=== PATIENT | male | born 1950 | race Caucasian/White ===

== ENCOUNTER 2021-09-29 12:45 | Emergency (ER) | payer MEDICARE ==
[~2021-09-29] VITALS: Ht 177.8 cm; Wt 87.5 kg
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
[2021-09-29] MEDS ORDERED: ROCURONIUM BROMIDE 50 MG/5 ML IV ONE ×2 (12:52→15:00)
[2021-09-29] MEDS ORDERED: ETOMIDATE 2 MG/ML VIAL IV ONE ×2 (12:52→15:00)
--- NOTE | 2021-09-29 12:54 | NUR ---
IV LINE IS ESTABLISHED, BLOOD SPECIMEN COLLECTED AND SENT TO THE LAB. THE LINE IS SALINE LOCKED.
--- NOTE | 2021-09-29 12:55 | NUR ---
CALLED TELEMED IQ DR. DOHERTY WILL BE TELENEURO
[2021-09-29] MEDS ORDERED: LORAZEPAM INJ 2 MG/ML VIAL ONE (12:58)
[2021-09-29 13:03] LABS: BASOPHILS # (AUTO) 0.1 K/uL (0.0-0.2); BASOPHILS % (AUTO) 0.7 % (0.0-2.0); EOSINOPHILS % (AUTO) 1.2 % (0.0-6.0); HEMATOCRIT 44 % (39-51); HEMOGLOBIN 14.7 g/dL (13.5-17.5); LYMPHOCYTES # (AUTO) 2.2 K/uL (0.8-4.8); LYMPHOCYTES % (AUTO) 25.2 % (20.0-44.0); MEAN CORPUSCULAR HGB CONC 33 g/dl (31.0-36.0); MEAN CORPUSCULAR VOLUME 87 fL (80-96); MONOCYTES # (AUTO) 0.6 K/uL (0.1-1.30); MONOCYTES % (AUTO) 6.4 % (2.0-12.0); NEUTROPHILS # (AUTO) 5.8 K/uL (1.8-8.9); NEUTROPHILS % (AUTO) 66.5 % (43.0-81.0); PLATELET COUNT (AUTO) 196 K/uL (150-450); RED BLOOD CELL COUNT(AUTO) 5.06 MIL/uL (4.5-6.0); WHITE BLOOD COUNT (AUTO) 8.7 K/uL (4.3-11.0)
[2021-09-29] MEDS ORDERED: CT SWABBABLE VALVE TRANS SET 1 EA INFUS.SET MC ONE (13:03)
[2021-09-29] MEDS ORDERED: IOHEXOL-350 100 ML VIAL IV ONE (13:03)
[2021-09-29 13:15] LABS: CALCIUM, SERUM 9.4 mg/dL (8.5-10.1); CARBON DIOXIDE 28 mmol/L (21-32); CHLORIDE 103 mmol/L (98-107); CREATININE 0.9 mg/dL (0.6-1.3); GLUCOSE 158 mg/dL (74-106); POTASSIUM 5.1 mmol/L (3.5-5.1); SODIUM SERUM 141 mmol/L (136-145); UREA NITROGEN, BLOOD 13 mg/dL (7-18)
[2021-09-29 13:19] LABS: ALBUMIN 4.2 g/dL (3.4-5.0); ALCOHOL, BLOOD < 3 mg/dL (0-0)
--- NOTE | 2021-09-29 13:20 | NUR ---
CALLED DR. JOSE GUADALUPE DURON [phone] WILL FAX OVER HISTORY TO US. PT HAS HX: CAD HYPERLIPID HTN DM
[2021-09-29] MEDS ORDERED: ALTEPLASE 100 MG/VIAL VIAL IV ONE (13:30)
[2021-09-29] MEDS ORDERED: ALTEPLASE BOLUS DOSE IV ONE (13:30)
[2021-09-29 13:33] LABS: ALANINE AMINOTRANSFERASE 44 U/L (12-78); ALKALINE PHOSPHATASE 83 U/L (46-116); ASPARTATE AMINOTRANSFERASE 39 U/L (15-37); BILIRUBIN,DIRECT 0.3 mg/dL (0.0-0.2); BILIRUBIN,TOTAL 0.8 mg/dL (0.2-1.0); TOTAL PROTEIN, SERUM 7.6 g/dL (6.4-8.2)
[2021-09-29 13:34] LABS: ACETAMINOPHEN 0 ug/ml (10-30)
--- NOTE | 2021-09-29 13:38 | NUR ---
GOT FAX FROM DR. DURON [facility] [phone]
[2021-09-29] MEDS ORDERED: PROPOFOL 100 ML ONE (13:43)
--- NOTE | 2021-09-29 13:47 | NUR ---
INTUBATION STARTED WITH DR ALVARES: GIVEN ETOMIDATE 30MG AT 1347 AND 80MG ROCURONIUM 80MG 1348 1350 FINISHED INTUBATION
--- NOTE | 2021-09-29 14:03 | NUR ---
RT PT INTUBATED WITH 7.5ETT 25 AT LIP SECURED PATENTED CHEST XRAY PENDING EQUAL BILATERAL CHEST RISE PLACED ON [facility] VENT AC 20 500 +5 100% ABG WILL BE DRAWN 1HR AFTER INTUBATION, NO SECRETIONS WILL CONT TO MONITOR Addendum: 09/29/21 at 1404 by BASILIO MOLINA RT Amended: Links added.
--- NOTE | 2021-09-29 14:24 | NUR ---
CALLED DAUGHTER JORY [phone] UNABLE TO [place] [facility] [place] F[place].
[2021-09-29 14:59] VITALS: BP 121/78
--- NOTE | 2021-09-29 14:59 | NUR ---
TRANSFERRED TO [facility] IN STABLE CONDITION
[2021-09-29] MEDS ORDERED: LORAZEPAM INJ 2 MG/ML VIAL IV ONE ×2 (15:00→15:30)
[2021-09-29] MEDS ORDERED: PROPOFOL 1,000 MG/100 ML BOTTLE IV ONE (15:00)
--- NOTE | 2021-09-29 15:13 | NUR ---
SPOKE TO JORY, PATIENT DAUGHTER [phone]. 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
== END 2021-09-29 15:23 | disposition short-term general hospital (02) ==
LOC: ER 12:51
DX: I63.9 Cerebral infarction, unspecified (principal); R41.82 Altered mental status, unspecified; Z20.822 Contact with and (suspected) exposure to COVID-19
CPT/HCPCS: 31500; 36415; 51702; 70450; 70496; 70498; 71045 ×2; 80048; 80076; 80143; 80320; 84484; 85025; 85730; 87426; 93005; 96365; 96375; 96376; 99291; J2060; J2997; J3490 ×2; J7030 ×2; Q9967; C9803; G0480